=== PATIENT | female | born 1950 | race Caucasian/White ===

== ENCOUNTER 2021-06-13 15:18 | Observation (INO) ==
[2021-06-13] MEDS: Enoxaparin 40 MG/0.4 ML SYR SUBCUT SCH (21:48)
[2021-06-13] MEDS: Potassium Chlor 20 meq TAB.ER PO SCH (21:48)
[2021-06-13] MEDS: CMCS:Brimonidine/Timolol 0.2%/0.5% OPTH(NF) SOL 5 ML BOTH EYES SCH (23:45)
[2021-06-14 06:29] LABS: HDL Cholesterol 47.3 mg/dL
[2021-06-14] MEDS: CMCS:Brimonidine/Timolol 0.2%/0.5% OPTH(NF) SOL 5 ML BOTH EYES SCH (08:19)
[2021-06-14] MEDS: Aspirin EC 81 mg TAB.EC (enteric coated) PO SCH (08:57)
[2021-06-14] MEDS: Potassium Chlor 20 meq TAB.ER PO SCH ×2 (08:59→20:59)
[2021-06-14] MEDS: Timolol 0.5% OPTH.SOL BTL RIGHT EYE SCH (20:59)
[2021-06-14] MEDS: Enoxaparin 40 MG/0.4 ML SYR SUBCUT SCH (21:00)
[2021-06-14] MEDS ORDERED: Brimonidine/Timolol 0.2%/0.5% OPTH(NF) SOL 5 ML RIGHT EYE SCH (21:00)
[2021-06-15 05:19] LABS: ABS Eosinophils 0.2 10^3/ul (0-0.6); ABS Lymphocytes 1.6 10^3/ul (1.0-4.8); ABS Monocytes 0.6 10^3/ul (0-0.8); ABS Neutrophils 4.5 10^3/ul (1.5-7.7); Eosinophil % 2.2 %; Hematocrit 40 % (35-47); Hemoglobin 13.6 g/dL (12.0-16.0); Lymphocyte % 22.8 %; Mean Corpuscular HGB Conc 34 g/dL (31-36); Mean Corpuscular Hemoglobin 32 pg (27-31); Mean Corpuscular Volume 92 fL (80-97); Mean Platelet Volume 7.2 fL (7.4-10.4); Platelet Count 272 10^3/uL (150-450); Red Blood Count 4.33 10^6 /uL (3.70-4.87); Red Cell Distribution Width 13 % (10-15); White Blood Count 6.8 10^3/uL (3.5-10.8)
[2021-06-15 05:31] LABS: Potassium 4.2 mmol/L (3.5-5.0)
[2021-06-15] MEDS ORDERED: Perflutren Lipid Microsphere 3 ML VIAL ONE (08:10)
[2021-06-15] MEDS: Aspirin EC 81 mg TAB.EC (enteric coated) PO SCH (08:56)
[2021-06-15] MEDS: Potassium Chlor 20 meq TAB.ER PO SCH (08:57)
[2021-06-15] MEDS: Timolol 0.5% OPTH.SOL BTL RIGHT EYE SCH (09:00)
[2021-06-15 12:15] VITALS: BP 133/86
== END 2021-06-15 15:55 | disposition home or self-care (01) ==
LOC: MEDTELE 15:18 → ED 15:18 → SUATTDRO 21:42 → MEDTELE 21:56
PROVIDERS: ADMIT Hospitalist; ATTEND Internal Medicine